=== PATIENT | male | born 1955 | race Caucasian/White ===

== ENCOUNTER → 2023-12-10 11:46 | Outpatient (REF) | payer SELFPAY | LOC: HWRAD 11:46 | PROVIDERS: ATTENDING PHYSICIAN Internal Medicine | DX: E78.5 Hyperlipidemia, unspecified (principal) | CPT/HCPCS: 75571 ==

== ENCOUNTER → 2024-11-08 09:35 | Outpatient (REF) | payer OTHER, SELFPAY | LOC: MRI 3T 09:35 | PROVIDERS: ATTENDING PHYSICIAN Urology; FAMILY PHYSICIAN Internal Medicine | DX: R97.20 Elevated prostate specific antigen [PSA] (principal) | CPT/HCPCS: 72197; A9575 ==